=== PATIENT | male | born 1990 ===

== ENCOUNTER 2016-08-16 08:34 | Emergency (ER) | payer OTHER ==
[2016-08-16 08:54] VITALS: BP 108/63
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
== END 2016-08-16 11:55 | disposition home or self-care (01) ==
LOC: UCEAST 08:34
DX: S16.1XXA Strain of muscle, fascia and tendon at neck level, initial encounter (principal); M25.512 Pain in left shoulder; M79.642 Pain in left hand; R20.9 Unspecified disturbances of skin sensation
CPT/HCPCS: 72050; 99212; G0463